=== PATIENT | male | born 1975 | race Caucasian/White ===

== ENCOUNTER 2020-03-24 10:04 | Emergency (ER) | payer OTHER ==
[2020-03-24] MEDS ORDERED: Lidocaine 1% PF 2 ML SDV INJECT ONE (10:41)
[2020-03-24] MEDS: Lidocaine 1% 10 ML MDV INJECT ONE (10:49)
--- NOTE | 2020-03-24 10:56 | EDM.PDOC ---
ED HPI GENERAL MEDICAL PROBLEM - General Chief Complaint: Laceration Stated Complaint: FORE HEAD LAC Time Seen by Provider: 03/24/20 10:24 Source of Information: Reports: Patient History Limitations: Reports: No Limitations - History of Present Illness INITIAL COMMENTS - FREE TEXT/NARRATIVE: 44-year-old male presents to the emergency department today with complaints of a laceration to his forehead. Patient reports he was working on a car this morning and the wrench fell on his head causing him to have a 1 cm laceration. 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) Middle Forehead Pain Score (Numeric/FACES): 6 - Related Data Allergies Allergy/AdvReac Type Severity Reaction Status Date / Time No Known Allergies Allergy Verified 03/24/20 10:28 Past Medical History - Past Health History Medical/Surgical History: Denies Medical/Surgical History Cardiovascular History: Reports: High Cholesterol, Hypertension Musculoskeletal History: Reports: Fracture Other Musculoskeletal History: fx 2 ribs on left side, fx L hand Psychiatric History: Reports: None Endocrine/Metabolic History: Reports: Diabetes, Type II - Infectious Disease History Infectious Disease History: Reports: Chicken Pox - Past Surgical History HEENT Surgical History: Reports: Oral Surgery Musculoskeletal Surgical History: Reports: Other (See Below) Other Musculoskeletal Surgeries/Procedures:: right arm surgery about 1 month ago Dec 15 Social & Family History - Family History Family Medical History: No Pertinent Family History Cardiac: Reports: [place], Pacemaker Other Cardiac Family History: brother- [place] when he was 28. mother [place] Neurological: Reports: Migraines, TIA Other Neurological Family History: mom-stroke 2009 Endocrine/Metabolic: Reports: Diabetes, Type I - Tobacco Use Tobacco Use Status *Q: Current Every Day Tobacco User Years of Tobacco use: 37 Packs/Tins Daily: 1.5 Used Tobacco, but Quit: No Second Hand Smoke Exposure: No - Caffeine Use Caffeine Use: Reports: Coffee - Recreational Drug Use Recreational Drug Use: No ED ROS GENERAL - Review of Systems Review Of Systems: Comprehensive ROS is negative, except as noted in HPI. ED EXAM, SKIN/RASH Exam: See Below Exam Limited By: No Limitations General Appearance: Alert, WD/WN, No Apparent Distress Eye Exam: Bilateral Eye: PERRL Ears: Hearing Grossly Normal Nose: Normal Inspection Throat/Mouth: Normal Inspection, Normal Voice, No Airway Compromise Head: Other (1cm lac to the middle of forehead) Neck: Normal Inspection, Supple, Non-Tender (Male) Exam: Deferred Rectal (Males) Exam: Deferred Back Exam: Vertebral Tenderness Extremities: Normal Inspection Neurological: Alert, Oriented, Normal Cognition Psychiatric: Normal Affect, Normal Mood Skin: Warm, Dry, Normal Color, No Rash, Wound/Incision (1 cm laceration to forehead) Location, Skin: Head Characteristics: Linear Associated features: Swelling Lymphatic: No Adenopathy ED SKIN PROCEDURES - Laceration/Wound Repair Forehead Appearance: Subcutaneous Anesthetic Type: Local Local Anesthesia - Lidocaine (Xylocaine): 1% Plain Local Anesthetic Volume: 1cc Skin Prep: Saline Closed with: Sutures Lac/Wound length In cm: 1 Suture Size: 5-0 # of Sutures: 5 Suture Type: Nylon, Interrupted Course - Vital Signs Last Recorded V/S: Last Vital Signs Temp 98.7 F 03/24/20 10:22 Pulse 70 03/24/20 10:22 Resp 16 03/24/20 10:22 BP 136/87 03/24/20 10:22 Pulse Ox 96 03/24/20 10:22 - Orders/Labs/Meds Meds: Medications Discontinued Medications Generic Name Dose Route Start Last Admin Trade Name Ariela PRN Reason Stop Dose Admin Lidocaine HCl 2 ml 03/24/20 10:41 Xylocaine-Mpf 1% INJECT 03/24/20 10:42 ONETIME ONE Departure - Departure Time of Disposition: 11:24 Disposition: Home, Self-Care 01 Condition: Good Clinical Impression: Forehead laceration Qualifiers: Encounter type: initial encounter Qualified Code(s): S01.81XA - Laceration without foreign body of other part of head, initial encounter - Discharge Information Instructions: Laceration Care, Adult, [id number] Referrals: Amee Prasad PA-C [Primary Care Provider] - Additional Instructions: You are seen in the emergency department today with complaints of a laceration in the length of 1 cm noted to the middle of your forehead. Laceration was repaired with 5 sutures. The sutures can come out in 5 days at the clinic or in the emergency department however if you return to the emergency department you may have a lengthy wait. Watch for signs and symptoms of infection which include warmth, swelling, or oozing drainage. Keep the dressing in place for 24 hours then you may clean this twice a day using mild soap such as Dial and then pat wound dry. Apply bacitracin to the site after cleaning and drying it. Sepsis Event Note (ED) - Evaluation Sepsis Screening Result: No Definite Risk - Focused Exam Vital Signs: Vital Signs Temp Pulse Resp BP Pulse Ox 03/24/20 10:22 98.7 F 70 16 136/87 96
== END 2020-03-24 11:35 | disposition home or self-care (01) ==
LOC: JD.ED 10:04
DX: S01.81XA Laceration without foreign body of other part of head, initial encounter (principal); I10 Essential (primary) hypertension; E11.9 Type 2 diabetes mellitus without complications; Z72.0 Tobacco use; W20.8XXA Other cause of strike by thrown, projected or falling object, initial encounter; Y92.009 Unspecified place in unspecified non-institutional (private) residence as the place of occurrence of the external cause
CPT/HCPCS: 12011; 99282; 99282-25; J2001

== ENCOUNTER 2020-06-03 18:00 | Emergency (ER) | payer MEDICAID ==
[2020-06-03] MEDS ORDERED: Sodium Chloride 0.9% 10 ML Syringe FLUSH PRN (18:14)
--- NOTE | 2020-06-03 18:47 | CR ---
Chest: Portable view of the chest was obtained. Comparison: Prior chest x-ray of 04/10/13. Heart size and mediastinum are normal. Lungs are clear with no acute parenchymal change. Bony structures are grossly intact. Impression: 1. Nothing acute is identified on portable chest x-ray. Diagnostic code #1
[2020-06-03] MEDS ORDERED: Aspirin 81 MG Tab.Chew PO ONE (18:59)
[2020-06-03] MEDS ORDERED: HYDROmorphone 0.5 MG/0.5 ML Syringe IVPUSH ONE (18:59)
[2020-06-03] MEDS ORDERED: Ondansetron 4 MG/2 ML SDV IVPUSH ONE (18:59)
--- NOTE | 2020-06-03 19:58 | EDM.PDOC ---
ED HPI GENERAL MEDICAL PROBLEM - General Chief Complaint: Chest Pain Stated Complaint: CHEST PAIN/DIFFICULTY BREATHING/LT ARM PAIN Time Seen by Provider: 06/03/20 18:53 Source of Information: Reports: Patient History Limitations: Reports: No Limitations - History of Present Illness INITIAL COMMENTS - FREE TEXT/NARRATIVE: The patient presents with chest pain. This started earlier today when he was on the way in to get his . The pain is in the center of his chest and it is like a tightness. This has happened before a few times. He smokes and he has high cholesterol. He has no fever, chills, cough, congestion, runny nose, shortness of breath, abdominal pain, or vomiting. He has some nausea. He is on cholesterol meds but he missed 2 days. Onset: Gradual Duration: Day(s): Location: Reports: Chest Quality: Reports: Other (tightness) Severity: Moderate Improves with: Reports: None Worsens with: Reports: None Associated Symptoms: Reports: Chest Pain. Denies: Cough, Fever/Chills, Headaches, Nausea/Vomiting, Shortness of Breath Chest Pain Score (Numeric/FACES): 8 - Related Data Allergies Allergy/AdvReac Type Severity Reaction Status Date / Time No Known Allergies Allergy Verified 06/03/20 18:21 Home Meds: Home Meds atorvaSTATin [Lipitor] 40 mg PO BEDTIME 06/03/20 [History] Past Medical History - Past Health History Medical/Surgical History: Denies Medical/Surgical History Cardiovascular History: Reports: High Cholesterol, Hypertension Musculoskeletal History: Reports: Fracture Other Musculoskeletal History: fx 2 ribs on left side, fx L hand Psychiatric History: Reports: None Endocrine/Metabolic History: Reports: Diabetes, Type II - Infectious Disease History Infectious Disease History: Reports: Chicken Pox - Past Surgical History HEENT Surgical History: Reports: Oral Surgery Musculoskeletal Surgical History: Reports: Other (See Below) Other Musculoskeletal Surgeries/Procedures:: right arm surgery about 1 month ago Dec 15 Social & Family History - Family History Family Medical History: No Pertinent Family History Cardiac: Reports: [place], Pacemaker Other Cardiac Family History: brother- [place] when he was 28. mother [place] Neurological: Reports: Migraines, TIA Other Neurological Family History: mom-stroke 2009 Endocrine/Metabolic: Reports: Diabetes, Type I - Tobacco Use Tobacco Use Status *Q: Current Every Day Tobacco User Years of Tobacco use: 37 Packs/Tins Daily: 0.5 - Caffeine Use Caffeine Use: Reports: Coffee - Recreational Drug Use Recreational Drug Use: No ED ROS GENERAL - Review of Systems Review Of Systems: See Below Constitutional: Reports: No Symptoms HEENT: Reports: No Symptoms Respiratory: Reports: No Symptoms Cardiovascular: Reports: Chest Pain Endocrine: Reports: No Symptoms GI/Abdominal: Reports: Abdominal Pain, Nausea : Reports: No Symptoms Musculoskeletal: Reports: No Symptoms ED EXAM, GENERAL - Physical Exam Exam: See Below Exam Limited By: No Limitations General Appearance: Alert, No Apparent Distress Ears: Normal External Exam Nose: Normal Inspection Head: Atraumatic, Normocephalic Neck: Normal Inspection Respiratory/Chest: No Respiratory Distress, Lungs Clear, Normal Breath Sounds Cardiovascular: Regular Rate, Rhythm, No Edema, No Murmur GI/Abdominal: Soft, Non-Tender, No Organomegaly, No Mass Back Exam: Normal Inspection Extremities: No Pedal Edema #1 Interpretation EKG Date: 06/03/20 Time: 18:05 Rhythm: NSR Rate (Beats/Min): 80 Wheeler: Normal P-Wave: Present QRS: Normal ST-T: Normal QT: Normal Course - Vital Signs Last Recorded V/S: Last Vital Signs Temp 97.1 F 06/03/20 18:15 Pulse 77 06/03/20 18:15 Resp 18 06/03/20 18:15 BP 140/103 H 06/03/20 18:15 Pulse Ox 98 06/03/20 18:15 - Orders/Labs/Meds Orders: Active Orders 24 hr Category Date Time Status EKG 12 Lead [EKG Documentation Completion] [RC] STAT Care 06/03/20 18:30 Active Peripheral IV Care [RC] . DIRECTED Care 06/03/20 18:15 Active Sodium Chloride 0.9% [Saline Flush] Med 06/03/20 18:14 Active 10 ml FLUSH ASDIRECTED PRN Peripheral IV Insertion Adult [OM.PC] Routine Oth 06/03/20 18:14 Ordered Medication Orders Sodium Chloride (Sodium Chloride 0.9% 10 Ml Syringe) 10 ml FLUSH ASDIRECTED PRN PRN Reason: Keep Vein Open Last Admin: 06/03/20 18:32 Dose: 10 ml Documented by: PATSY Labs: Laboratory Tests 06/03/20 06/03/20 06/03/20 Range/Units 18:13 18:13 18:13 WBC 10.67 H (4.23-9.07) K/mm3 RBC 5.35 (4.63-6.08) M/mm3 Hgb 16.9 (13.7-17.5) gm/dl Hct 47.1 (40.1-51.0) % MCV 88.0 (79.0-92.2) fl MCH 31.6 (25.7-32.2) pg MCHC 35.9 H (32.2-35.5) g/dl RDW Std Deviation 43.2 (35.1-43.9) fL Plt Count 275 (163-337) K/mm3 MPV 10.4 (9.4-12.3) fl Neut % (Auto) 55.3 (34.0-67.9) % Lymph % (Auto) 33.3 (21.8-53.1) % Emmet % (Auto) 7.6 (5.3-12.2) % Eos % (Auto) 3.2 (0.8-7.0) Baso % (Auto) 0.3 (0.1-1.2) % Neut # (Auto) 5.91 H (1.78-5.38) K/mm3 Lymph # (Auto) 3.55 (1.32-3.57) K/mm3 Emmet # (Auto) 0.81 (0.30-0.82) K/mm3 Eos # (Auto) 0.34 (0.04-0.54) K/mm3 Baso # (Auto) 0.03 (0.01-0.08) K/mm3 Manual Slide Review Normal smear D-Dimer, Quantitative < 0.19 L (0.19-0.50) mg/L Sodium 136 (136-145) mEq/L Potassium 4.3 (3.5-5.1) mEq/L Chloride 100 (98-107) mEq/L Carbon Dioxide 20 L (21-32) mEq/L Anion Gap 20.3 H (5-15) BUN 21 H (7-18) mg/dL Creatinine 1.0 (0.7-1.3) mg/dL Est Cr Clr Drug Dosing 87.22 mL/min Estimated GFR (MDRD) > 60 (>60) mL/min BUN/Creatinine Ratio 21.0 H (14-18) Glucose 125 H (74-106) mg/dL Calcium 8.6 (8.5-10.1) mg/dL Total Bilirubin 0.5 (0.2-1.0) mg/dL AST TNP ALT TNP Alkaline Phosphatase 96 (46-116) U/L CK-MB (CK-2) 1.6 (0-3.6) ng/ml Troponin I < 0.017 (0.00-0.056) ng/mL Total Protein TNP Albumin 4.2 (3.4-5.0) g/dl Globulin 3.7 gm/dL Albumin/Globulin Ratio 1.1 (1-2) Meds: Medications Generic Name Dose Route Start Last Admin Trade Name Freq PRN Reason Stop Dose Admin Sodium Chloride 10 ml 06/03/20 18:14 06/03/20 18:32 Sodium Chloride 0.9% 10 Ml Syringe FLUSH 10 ml ASDIRECTED PRN Administration Keep Vein Open Discontinued Medications Generic Name Dose Route Start Last Admin Trade Name Freq PRN Reason Stop Dose Admin Aspirin 324 mg 06/03/20 18:59 06/03/20 19:34 Aspirin 81 Mg Tab.Chew PO 06/03/20 19:00 324 mg ONETIME ONE Administration Hydromorphone HCl 0.5 mg 06/03/20 18:59 06/03/20 19:42 Hydromorphone 0.5 Mg/0.5 Ml Syringe IVPUSH 06/03/20 19:00 Not Given ONETIME ONE Ondansetron HCl 4 mg 06/03/20 18:59 06/03/20 19:42 Ondansetron 4 Mg/2 Ml Sdv IVPUSH 06/03/20 19:00 Not Given ONETIME ONE - Re-Assessments/Exams Free Text/Narrative Re-Assessment/Exam: 06/03/20 19:58 I ordered an IV saline lock, EKG, CXR, labs, aspirin, dilaudid and zofran. He later did not want the zofran or dilaudid. His EKG shows a NSR with no acute changes. His CXR looks good. His WBC was slightly elevated at 10.07. His anion gap was elevated at 20.3. His troponin and D-dimer were negative. This does not appear to be an [place]. Lab could not run any liver studies because his blood was to [facility]. I will have him take pepcid daily for a week and follow up with Amee Prasad next week. Departure - Departure Time of Disposition: 20:00 Disposition: Home, Self-Care 01 Condition: Good Clinical Impression: Atypical chest pain, Hypercholesterolemia Referrals: Amee Prasad PA-C [Primary Care Provider] - 1 Week Additional Instructions: Keep taking your cholesterol medications. Take pepcid 20mg daily for a week. Follow up with Amee Prasad next week. Please return if you are worse. Sepsis Event Note (ED) - Evaluation Sepsis Screening Result: No Definite Risk - Focused Exam Vital Signs: Vital Signs Temp Pulse Resp BP Pulse Ox 06/03/20 18:15 97.1 F 77 18 140/103 H 98 - My Orders Last 24 Hours: My Active Orders 06/03/20 18:14 Sodium Chloride 0.9% [Saline Flush] 10 ml FLUSH ASDIRECTED PRN Peripheral IV Insertion Adult [OM.PC] Routine 06/03/20 18:15 Peripheral IV Care [RC] . DIRECTED 06/03/20 18:30 EKG 12 Lead [EKG Documentation Completion] [RC] STAT - Assessment/Plan Last 24 Hours: My Active Orders 06/03/20 18:14 Sodium Chloride 0.9% [Saline Flush] 10 ml FLUSH ASDIRECTED PRN Peripheral IV Insertion Adult [OM.PC] Routine 06/03/20 18:15 Peripheral IV Care [RC] . DIRECTED 06/03/20 18:30 EKG 12 Lead [EKG Documentation Completion] [RC] STAT
== END 2020-06-03 20:15 | disposition home or self-care (01) ==
LOC: JD.ED 18:00
DX: R07.89 Other chest pain (principal); E78.00 Pure hypercholesterolemia, unspecified; I10 Essential (primary) hypertension; E11.9 Type 2 diabetes mellitus without complications; Z72.0 Tobacco use; Z79.899 Other long term (current) drug therapy
CPT/HCPCS: 36415; 71045; 80053; 82553; 84484; 85025; 85379; 93005; 99285; A9270; 93010; 99284

== ENCOUNTER 2020-07-28 09:19 | Emergency (ER) | payer MEDICAID ==
[2020-07-28] MEDS ORDERED: Sodium Chloride 0.9% 10 ML Syringe FLUSH PRN (09:40)
[2020-07-28] MEDS ORDERED: Alum Hydrox/Mag Hydrox/Simeth 30 ML, Lidocaine 2% 15 ML PO ONE ×2 (09:46)
--- NOTE | 2020-07-28 09:49 | EDM.PDOC ---
ED HPI GENERAL MEDICAL PROBLEM - General Chief Complaint: Chest Pain Stated Complaint: CHEST PAIN/LIGHTHEADED Time Seen by Provider: 07/28/20 09:26 Source of Information: Reports: Patient History Limitations: Reports: No Limitations, Other (ED vital signs reveal a temp of 97.1, pulse of 84, respiratory rate of 20, blood pressure 142/105, pulse ox 100% on room air) - History of Present Illness INITIAL COMMENTS - FREE TEXT/NARRATIVE: 45-year-old male presents the emergency department today with complaints of midsternal chest pain that started about 35 minutes prior to arrival. The patient states that he was at work, he works as a automatic transmission mechanic, when the chest pain started. He states it started out feeling like he got kicked in the chest with associated muscle spasm on the left side of his neck and his trapezius muscle and then muscle spasm to his paraspinal muscles on the left side of his thoracic region. He states that he had associated sweating and nausea when the chest pain started. He denies any radiation of the chest pain states it stays directly in the center of his chest and when it initially started he states it felt like heartburn. Denies any recent fever, chills, vomiting or diarrhea. Denies abdominal pain. Denies headache other than when he has the muscle spasm to the right trapezius area. He also associates hand numbness bilaterally when the chest pain started. Patient does have a history of high cholesterol for which he takes cholesterol medications. He has smoked for approximately 40 years. He does have a history of hypertension however he does not take any prescription medications and his primary care provider is Amee Prasad. Of note, the patient's last ER visit when he had chest pain, they were unable to run his LFTs as his blood was so lipemic. He was told to follow-up with his primary care provider and did not. Middle Chest Pain Score (Numeric/FACES): 10 - Related Data Allergies Allergy/AdvReac Type Severity Reaction Status Date / Time No Known Allergies Allergy Verified 07/28/20 09:29 Home Meds: Home Meds atorvaSTATin [Lipitor] 40 mg PO BEDTIME 06/03/20 [History] Past Medical History - Past Health History Medical/Surgical History: Denies Medical/Surgical History Cardiovascular History: Reports: High Cholesterol, Hypertension Musculoskeletal History: Reports: Fracture Other Musculoskeletal History: fx 2 ribs on left side, fx L hand Psychiatric History: Reports: None Endocrine/Metabolic History: Reports: Diabetes, Type II, Obesity/BMI 30+ - Infectious Disease History Infectious Disease History: Reports: Chicken Pox - Past Surgical History HEENT Surgical History: Reports: Oral Surgery Musculoskeletal Surgical History: Reports: Other (See Below) Other Musculoskeletal Surgeries/Procedures:: right arm surgery Dec 15 Social & Family History - Family History Family Medical History: No Pertinent Family History Cardiac: Reports: [place], Pacemaker Other Cardiac Family History: brother- [place] when he was 28. mother [place] Neurological: Reports: Migraines, TIA Other Neurological Family History: mom-stroke 2009 Endocrine/Metabolic: Reports: Diabetes, Type I - Tobacco Use Tobacco Use Status *Q: Current Every Day Tobacco User Years of Tobacco use: 39 Packs/Tins Daily: 1 - Caffeine Use Caffeine Use: Reports: Coffee - Recreational Drug Use Recreational Drug Use: No ED ROS GENERAL - Review of Systems Review Of Systems: Comprehensive ROS is negative, except as noted in HPI. ED EXAM, GENERAL - Physical Exam Exam: See Below Exam Limited By: No Limitations General Appearance: Alert, WD/WN, Moderate Distress Ears: Normal External Exam, Hearing Grossly Normal Nose: Normal Inspection Throat/Mouth: Normal Inspection, Normal Lips, Normal Voice, No Airway Compromise Head: Atraumatic Neck: Normal Inspection, Supple. No: Non-Tender (Tenderness noted to left trapezius area with palpation. Tenderness also noted to left lateral paraspinous area in the thoracic region) Respiratory/Chest: No Respiratory Distress, Lungs Clear, Normal Breath Sounds, No Accessory Muscle Use. No: Chest Non-Tender (Tenderness noted to the midsternal area as well as left pectoralis area) Cardiovascular: Normal Peripheral Pulses, Regular Rate, Rhythm, No Edema, No Murmur Peripheral Pulses: 2+: Radial (L), Radial (R) GI/Abdominal: Normal Bowel Sounds, Soft, Non-Tender, No Distention (Male) Exam: Deferred Rectal (Males) Exam: Deferred Back Exam: Normal Inspection Extremities: Normal Inspection, Normal Range of Motion, Non-Tender, No Pedal Edema, Normal Capillary Refill Neurological: Alert, Oriented, Normal Cognition Psychiatric: Anxious Skin Exam: Warm, Dry, Intact, Normal Color, No Rash Lymphatic: No Adenopathy #1 Interpretation EKG Date: 07/28/20 Time: 09:27 Rhythm: NSR Rate (Beats/Min): 99 [place]: Normal P-Wave: Present QRS: Normal ST-T: Normal QT: Normal EKG Interpretation Comments: Per Dr Zhong interpretation: Sinus rhythm at 99 bpm; lateral borderline ST elevation Course - Vital Signs Text/Narrative:: Upon assessment the patient is having significant amount of midsternal chest pain. Significantly more painful with palpation to the center of his chest and in the left pectoralis area. Complains of intermittent muscle spasms and cramping to his left trapezius muscle radiating up into the base of his skull. Also complaining of muscle spasms to his paraspinal muscles to the left thoracic area. Patient describes the pain in his chest as a spasmy type of pain. He states he has not eaten anything this morning and has only been smoking and had a cup of coffee. I have ordered an EKG, portable view of the chest, CBC, CMP, C-reactive protein, magnesium and troponin. I have also ordered a GI cocktail for this patient. Last Recorded V/S: Last Vital Signs Temp 97.1 F 07/28/20 09:26 Pulse 84 07/28/20 09:26 Resp 20 07/28/20 09:26 BP 142/105 H 07/28/20 09:26 Pulse Ox 100 07/28/20 09:26 - Orders/Labs/Meds Orders: Active Orders 24 hr Category Date Time Status EKG Documentation Completion [RC] STAT Care 07/28/20 09:40 Active Sodium Chloride 0.9% [Saline Flush] Med 07/28/20 09:40 Active 10 ml FLUSH ASDIRECTED PRN Saline Lock Insert [OM.PC] Stat Oth 07/28/20 09:40 Ordered Medication Orders Sodium Chloride (Sodium Chloride 0.9% 10 Ml Syringe) 10 ml FLUSH ASDIRECTED PRN PRN Reason: Keep Vein Open Last Admin: 07/28/20 09:50 Dose: 10 ml Documented by: GWENDOLYN Labs: Laboratory Tests 07/28/20 07/28/20 Range/Units 09:25 09:25 WBC 14.23 H (4.23-9.07) K/mm3 RBC 5.18 (4.63-6.08) M/mm3 Hgb 16.0 (13.7-17.5) gm/dl Hct 45.9 (40.1-51.0) % MCV 88.6 (79.0-92.2) fl MCH 30.9 (25.7-32.2) pg MCHC 34.9 (32.2-35.5) g/dl RDW Std Deviation 44.0 H (35.1-43.9) fL Plt Count 298 (163-337) K/mm3 MPV 10.7 (9.4-12.3) fl Neut % (Auto) 65.1 (34.0-67.9) % Lymph % (Auto) 27.0 (21.8-53.1) % [place] % (Auto) 6.2 (5.3-12.2) % Eos % (Auto) 1.2 (0.8-7.0) Baso % (Auto) 0.3 (0.1-1.2) % Neut # (Auto) 9.27 H (1.78-5.38) K/mm3 Lymph # (Auto) 3.84 H (1.32-3.57) K/mm3 [place] # (Auto) 0.88 H (0.30-0.82) K/mm3 Eos # (Auto) 0.17 (0.04-0.54) K/mm3 Baso # (Auto) 0.04 (0.01-0.08) K/mm3 Manual Slide Review Normal smear Sodium 140 (136-145) mEq/L Potassium 4.7 (3.5-5.1) mEq/L Chloride 104 (98-107) mEq/L Carbon Dioxide 19 L (21-32) mEq/L Anion Gap 21.7 H (5-15) BUN 22 H (7-18) mg/dL Creatinine 1.2 (0.7-1.3) mg/dL Est Cr Clr Drug Dosing 71.91 mL/min Estimated GFR (MDRD) > 60 (>60) mL/min BUN/Creatinine Ratio 18.3 H (14-18) Glucose 149 H (70-99) mg/dL Calcium 10.0 (8.5-10.1) mg/dL Magnesium 2.0 (1.8-2.4) mg/dL Total Bilirubin 0.5 (0.2-1.0) mg/dL AST 43 H (15-37) U/L ALT 59 (16-63) U/L Alkaline Phosphatase 101 (46-116) U/L Troponin I < 0.017 (0.00-0.056) ng/mL C-Reactive Protein 0.2 (<1.0) mg/dL Total Protein 8.1 (6.4-8.2) g/dl Albumin 4.4 (3.4-5.0) g/dl Globulin 3.7 gm/dL Albumin/Globulin Ratio 1.2 (1-2) Meds: Medications Generic Name Dose Route Start Last Admin Trade Name Freq PRN Reason Stop Dose Admin Sodium Chloride 10 ml 07/28/20 09:40 07/28/20 09:50 Sodium Chloride 0.9% 10 Ml Syringe FLUSH 10 ml ASDIRECTED PRN Administration Keep Vein Open Discontinued Medications Generic Name Dose Route Start Last Admin Trade Name Freq PRN Reason Stop Dose Admin Al Hydroxide/Mg Hydroxide 30 0 ml 07/28/20 09:46 07/28/20 09:50 ml/ Lidocaine HCl 15 ml PO 07/28/20 09:47 45 ml ONETIME ONE Administration Dicyclomine HCl 10 mg 07/28/20 10:27 07/28/20 10:47 Dicyclomine 10 Mg Cap PO 07/28/20 10:28 10 mg ONETIME ONE Administration - Re-Assessments/Exams Free Text/Narrative Re-Assessment/Exam: 07/28/20 10:30 Hematology reveals a WBC of 14.3, hemoglobin 16.0, hematocrit 45.9, platelet count 298, neutrophil percentage 65.1, lymphocyte percentage 27.0, elevated WBC is likely due to a stress response Chemistry reveals a sodium of 140, potassium 4.7, anion gap 21.7, BUN 22, creatinine 1.2, glucose 149, magnesium 2.0, AST 43, ALT 59, alk phos 101, troponin less than 0.017, C-reactive protein 0.2 Patient states that the GI cocktail did not seem to quell his chest pain/spasm. I have ordered for him to receive a dose of bentyl to see if we can relax that area. He states his muscle spasms in his neck and his back have resolved. 07/28/20 10:43 Portable view of the chest does not show any acute processes. Formal radiologist report is pending. 07/28/20 11:19 Patient states that he is no longer having chest pain. I suspect that the patient was having esophageal spasm and the Bentyl did seem to help relax. States that his chest now just feels sore. He will be discharged to home with recommendations that he start taking Prilosec 1 tab daily. He will need to follow-up with his primary care physician in 1 week. Departure - Departure Time of Disposition: 11:21 Disposition: Home, Self-Care 01 Condition: Good Clinical Impression: Esophageal spasm Instructions: Esophageal Spasm, Nonspecific Chest Pain, Adult, [id number] Referrals: Amee Prasad PA-C [Primary Care Provider] - Forms: ED Department Discharge Additional Instructions: You were seen in the emergency department with chest pain in the center of your chest that started this morning after he got to work. You had not eaten anything and you only had cigarettes and drink a cup of coffee. I suspect that the cause of your pain was due to esophageal spasm caused by reflux. Recommend that you stop smoking cigarettes and decrease anything that causes reflux such as caffeine, nicotine and acidic type of foods. Start taking Prilosec 20 mg daily. Also recommend that you start eating breakfast to start your day to decrease the acid in your stomach. You will need to follow-up with your primary care provider in a week to 10 days for reevaluation that this medication is working. Should your condition worsen or change, do not hesitate returning to the emergency department. Sepsis Event Note (ED) - Evaluation Sepsis Screening Result: No Definite Risk - Focused Exam Vital Signs: Vital Signs Temp Pulse Resp BP Pulse Ox 07/28/20 09:26 97.1 F 84 20 142/105 H 100 - My Orders Last 24 Hours: My Active Orders 07/28/20 09:40 EKG Documentation Completion [RC] STAT Sodium Chloride 0.9% [Saline Flush] 10 ml FLUSH ASDIRECTED PRN Saline Lock Insert [OM.PC] Stat - Assessment/Plan Last 24 Hours: My Active Orders 07/28/20 09:40 EKG Documentation Completion [RC] STAT Sodium Chloride 0.9% [Saline Flush] 10 ml FLUSH ASDIRECTED PRN Saline Lock Insert [OM.PC] Stat
[2020-07-28] MEDS ORDERED: Dicyclomine 10 MG Cap PO ONE (10:27)
--- NOTE | 2020-07-28 10:45 | CR ---
Chest: Portable view of the chest was obtained. Comparison: Prior chest x-ray of 06/03/20. Heart size and mediastinum are within normal limits. Lungs are clear with no acute parenchymal change. No acute osseous abnormality is appreciated. Impression: 1. Nothing acute is seen on portable chest x-ray. Diagnostic code #1
== END 2020-07-28 11:30 | disposition home or self-care (01) ==
LOC: JD.ED 09:19
DX: K22.4 Dyskinesia of esophagus (principal); E78.00 Pure hypercholesterolemia, unspecified; I10 Essential (primary) hypertension; E11.9 Type 2 diabetes mellitus without complications; E66.9 Obesity, unspecified; Z72.0 Tobacco use; Z68.31 Body mass index [BMI] 31.0-31.9, adult; Z79.899 Other long term (current) drug therapy
CPT/HCPCS: 36415; 71045; 80053; 83735; 84484; 85025; 86140; 93005; 99285; A9270; 93010; 99283

== ENCOUNTER 2021-02-15 03:01 | Emergency (ER) | payer SELFPAY ==
[2021-02-15] MEDS ORDERED: Morphine 4 MG/ML Syringe IVPUSH ONE (04:19)
[2021-02-15] MEDS ORDERED: Iopamidol 612 MG/ML 100 ML Bottle IVPUSH ONE (04:27)
--- NOTE | 2021-02-15 04:59 | EDM.PDOC ---
ED HPI GENERAL MEDICAL PROBLEM - General Chief Complaint: Back Pain or Injury Stated Complaint: BACK INJURY Time Seen by Provider: 02/15/21 04:00 Source of Information: Reports: Patient History Limitations: Reports: No Limitations - History of Present Illness INITIAL COMMENTS - FREE TEXT/NARRATIVE: Patient is a 45-year-old male with no significant past medical history presentin g with a chief complaint of upper and lower back pain. Patient states he was injured while at work 2 hours prior to arrival. 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 He states this machine weighs several 1000 pounds and did not strike him at high velocity but did land on top of him and caused him to fall to the ground. He denies any loss of consciousness or head injury. Reports pain primarily in the upper thoracic area and the lower back region. Denies any blunt abdominal injury. No intervention performed prior to arrival. Pain is moderate to severe in nature. Pain is worse with movement. Middle Back Pain Score (Numeric/FACES): 10 - Related Data Allergies Allergy/AdvReac Type Severity Reaction Status Date / Time No Known Allergies Allergy Verified 02/15/21 03:17 Home Meds: Home Meds atorvaSTATin [Lipitor] 40 mg PO BEDTIME 06/03/20 [History] Cyclobenzaprine [Flexeril] 20 mg PO BEDTIME #10 tab 02/15/21 [Rx] Past Medical History - Past Health History Medical/Surgical History: Denies Medical/Surgical History Cardiovascular History: Reports: High Cholesterol, Hypertension Musculoskeletal History: Reports: Fracture Other Musculoskeletal History: fx 2 ribs on left side, fx L hand Psychiatric History: Reports: None Endocrine/Metabolic History: Reports: Diabetes, Type II, Obesity/BMI 30+ - Infectious Disease History Infectious Disease History: Reports: Chicken Pox - Past Surgical History HEENT Surgical History: Reports: Oral Surgery Musculoskeletal Surgical History: Reports: Other (See Below) Other Musculoskeletal Surgeries/Procedures:: right arm surgery Dec 15 Social & Family History - Family History Family Medical History: No Pertinent Family History Cardiac: Reports: [place], Pacemaker Other Cardiac Family History: brother- [place] when he was 28. mother [place] Neurological: Reports: Migraines, TIA Other Neurological Family History: mom-stroke 2009 Endocrine/Metabolic: Reports: Diabetes, Type I - Tobacco Use Tobacco Use Status *Q: Current Every Day Tobacco User Years of Tobacco use: 38 Packs/Tins Daily: 1.5 - Caffeine Use Caffeine Use: Reports: Coffee - Recreational Drug Use Recreational Drug Use: No ED ROS GENERAL - Review of Systems Review Of Systems: See Below Free Text/Narrative/Comment: In addition to that documented in the HPI above, the additional ROS was obtained: Constitutional: Denies fevers or chills Eyes: Denies vision changes ENMT: Denies sore throat CV: Denies chest pain Resp: Denies SOB GI: Denies vomiting or diarrhea : Denies painful urination MSK: Denies recent trauma Skin: Denies new rashes Neuro: Denies new numbness or tingling or weakness Endocrine: Denies unexpected weight loss Heme: Denies bleeding disorders ED EXAM,LOWER BACK PAIN/INJURY - Physical Exam Exam: See Below Text/Narrative:: I have reviewed the triage vital signs Const: Well nourished, well developed, appears stated age Eyes: Pupils Equal and reactive to light bilaterally, no conjunctival injection HENT: No signs of trauma or swelling, Neck supple without meningismus CV: Regular Rate Rhythm, Warm, well-perfused extremities RESP: Unlabored respiratory effort GI: soft, non-tender, non-distended, no masses MSK: Patient demonstrates midline cervical spinal tenderness around C5-C6. There are no step-offs. Patient also demonstrates midline lumbar tenderness around L3-L5 region. Otherwise, no gross deformities appreciated to the extremities. Skin: Warm, dry. No rashes Neuro: GCS of 15. Alert, strategic development manager II-XII grossly intact. Sensation and motor function of extremities grossly intact. Psych: Appropriate mood and affect. Course - Vital Signs Last Recorded V/S: Last Vital Signs Temp 36.1 C 02/15/21 03:14 Pulse 86 02/15/21 03:14 Resp 16 02/15/21 03:14 BP 135/90 02/15/21 03:14 Pulse Ox 95 02/15/21 03:14 - Orders/Labs/Meds Orders: Active Orders 24 hr Category Date Time Status Cervical Spine wo Cont [CT] Stat Exams 02/15/21 04:18 Taken Chest w wo Cont [CT] Stat Exams 02/15/21 04:18 Taken Lumbar Spine Min 4V [CR] Stat Exams 02/15/21 03:16 Taken Lumbar Spine wo Cont [CT] Stat Exams 02/15/21 04:18 Taken Thoracic Spine Min 4V [CR] Stat Exams 02/15/21 03:16 Taken Thoracic Spine wo Cont [CT] Stat Exams 02/15/21 04:18 Taken Meds: Medications Discontinued Medications Generic Name Dose Route Start Last Admin Trade Name Ariela PRN Reason Stop Dose Admin Iopamidol 100 ml 02/15/21 04:27 02/15/21 04:51 Iopamidol 612 Mg/Ml 100 Ml Bottle IVPUSH 02/15/21 04:28 100 ml ONETIME ONE Administration Morphine Sulfate 4 mg 02/15/21 04:19 02/15/21 04:30 Morphine 4 Mg/Ml Syringe IVPUSH 02/15/21 04:20 4 mg ONETIME ONE Administration Departure - Departure Time of Disposition: 05:39 Disposition: Home, Self-Care 01 Clinical Impression: Back pain - Discharge Information Instructions: Acute Back Pain, Adult Referrals: Amee Prasad PA-C [Primary Care Provider] - Forms: ED Department Discharge, ED Return to Work/School Form Sepsis Event Note (ED) - Evaluation Sepsis Screening Result: No Definite Risk - Focused Exam Vital Signs: Vital Signs Temp Pulse Resp BP Pulse Ox 02/15/21 03:14 36.1 C 86 16 135/90 95 - My Orders Last 24 Hours: My Active Orders 02/15/21 03:16 Lumbar Spine Min 4V [CR] Stat Thoracic Spine Min 4V [CR] Stat 02/15/21 04:18 Cervical Spine wo Cont [CT] Stat Chest w wo Cont [CT] Stat Lumbar Spine wo Cont [CT] Stat Thoracic Spine wo Cont [CT] Stat - Assessment/Plan Last 24 Hours: My Active Orders 02/15/21 03:16 Lumbar Spine Min 4V [CR] Stat Thoracic Spine Min 4V [CR] Stat 02/15/21 04:18 Cervical Spine wo Cont [CT] Stat Chest w wo Cont [CT] Stat Lumbar Spine wo Cont [CT] Stat Thoracic Spine wo Cont [CT] Stat Assessment:: Patient is a 45-year-old male presenting to the emergency room with back injury. Patient is not an any acute distress. Vital signs within normal limits. No significant injury present on examination other than spinal tenderness. CT evaluation of this patient did not show any evidence of acute fracture. Comment of acute versus chronic 11th rib fracture seems to be more chronic as patient is not having pain in that area. At this point, patient's pain is improved and will be discharged with outpatient follow-up. Return precautions discussed as usual. Patient agrees with plan of care.
--- NOTE | 2021-02-15 09:41 | CT ---
CT cervical spine Technique: Multiple axial sections were obtained from above C1 inferiorly to the bottom of T4. Reconstructed coronal and sagittal images were obtained. Comparison: No previous cervical spine study is available. Findings: No bony central or bony neural foraminal stenosis is seen. Vertebral body heights are maintained. Mucosal thickening is seen within the ethmoid sinuses and maxillary sinuses. No fracture or subluxation is seen. Impression: 1. Sinus disease, difficult to exclude acute sinusitis. Please correlate with patient's symptoms. 2. Nothing acute is otherwise seen on CT study of the cervical spine. Diagnostic code #3 I agree with preliminary report from [facility], finalized on 02/15/21, 6:13 AM SQL DATA ARCHITECT, code 2
--- NOTE | 2021-02-15 09:46 | CT ---
CT chest Technique: Multiple axial sections were obtained through the chest. Intravenous contrast was not utilized. Reconstructed coronal and sagittal images were obtained. Comparison: Prior CT chest study of 04/11/13. Findings: Thoracic aorta shows no aneurysm. Very minimal coronary artery calcification is seen. Mediastinum shows no adenopathy. No pericardial thickening is seen. Visualized upper abdominal structures show nothing acute. Air cyst is noted within the left upper lung anteriorly which measures 1.8 cm. This measured 1.2 cm on prior study. This is most likely incidental. Lungs otherwise are clear. No acute parenchymal change is seen. Bone window settings were reviewed. Small detached tips of the spinous processes are noted within T4, T5 and T6 which appear to be old. Slight deformity is noted of the lateral left 11th rib which could represent an acute fracture if patient is symptomatic to this level. Impression: 1. Slight deformity within the lateral left 11th rib possibly due to acute fracture if patient is symptomatic to this area. 2. Small air cyst within the anterior left upper lung measuring 1.8 cm which is felt to be benign. 3. Nothing acute is otherwise seen on CT study of the chest. Diagnostic code #3 I agree with preliminary report from [facility], finalized on 02/15/21, 6:10 AM ENGINEERING MANAGER ELECTRONICS, code 1
--- NOTE | 2021-02-15 09:46 | CT ---
CT thoracic spine Technique: Multiple axial sections were obtained through the thoracic spine. Reconstructed coronal and sagittal images were obtained. Comparison: No prior thoracic spine imaging is available. Findings: Small detached tips of the spinous processes are noted within T4, T5 and T6 which are likely old. Mild scattered disc space narrowing is seen throughout the thoracic spine. Minimal scattered anterior endplate osteophytes are seen. No bony central canal stenosis is seen. Neural foramina show no focal stenosis. No abnormal subluxation is seen. Impression: 1. Mild scattered disc space narrowing with mild endplate osteophytes. 2. Detached tips of the spinous processes at T4, T5 and T6 which appear old. 3. Nothing acute is appreciated on CT study of the thoracic spine. Diagnostic code #2 I agree with preliminary report from [facility], finalized on 02/15/21, 6:17 AM REINFORCING STEEL WORKER, code 1
--- NOTE | 2021-02-15 09:47 | CT ---
CT lumbar spine Technique: Multiple axial sections were obtained through the lumbar spine. Reconstructed coronal and sagittal images were obtained. Comparison: Prior MRI lumbar spine study of 04/11/10 and prior lumbar spine plain film study performed earlier on the same day (3:33 AM). Findings: Vertebral body heights and disc spaces are maintained. No bony central or bony neural foraminal stenosis is seen. Minimal anterior osteophytes are seen at L3-4. No fracture or subluxation is seen. Impression: 1. Minimal degenerative change. 2. No acute fracture or subluxation is seen. Diagnostic code #2 I agree with preliminary report from [facility], finalized on 02/15/21, 6:17 AM CERTIFICATION TECHNICIAN, code 1
--- NOTE | 2021-02-15 09:48 | CR ---
Lumbar spine: AP, lateral and coned-down lateral view centered to the lumbosacral junction were obtained. Comparison: Prior MRI lumbar spine study of 04/11/[address] lumbar spine study performed on 4:37 AM. Findings: Vertebral body heights and disc spaces are maintained within the lumbar spine. Slight anterior osteophytes are seen off L4 and L5. Pedicles are intact. Visualized transverse and spinous processes are intact. Sacroiliac joints appear within normal limits. No fracture or subluxation is seen. Impression: 1. Slight degenerative change. 2. Nothing acute is seen on 3-view lumbar spine study. Diagnostic code #2 I agree with preliminary report from [facility], finalized on 02/15/21, 5:37 AM WET PROCESS HEAD MILLER, code 1
--- NOTE | 2021-02-15 09:53 | CR ---
Thoracic spine: AP, lateral and swimmer's views of the thoracic spine were obtained. Comparison: No prior thoracic spine imaging is available, subsequent CT thoracic spine study performed on the same day (4:37 AM) was utilized. Findings: Mild scattered disc space narrowing is seen with scattered anterior and lateral osteophytes. Minimal scoliosis is noted. Pedicles are intact. No discrete fracture or abnormal subluxation is seen. Impression: 1. Mild scattered degenerative change with slight scoliosis. 2. No acute fracture or subluxation is seen on 3-view thoracic spine study. Diagnostic code #2 I agree with preliminary report from [facility], finalized on 02/15/21, 5:38 AM SALESPERSON FURNITURE, code 1
== END 2021-02-15 06:00 | disposition home or self-care (01) ==
LOC: JD.ED 03:01
DX: M54.50 Low back pain, unspecified (principal); E78.00 Pure hypercholesterolemia, unspecified; I10 Essential (primary) hypertension; E11.9 Type 2 diabetes mellitus without complications; E66.9 Obesity, unspecified; Z79.899 Other long term (current) drug therapy; Z72.0 Tobacco use; Z68.31 Body mass index [BMI] 31.0-31.9, adult
CPT/HCPCS: 71270; 72074; 72110; 72125; 72128; 72131; 96374; 99284; J2270; Q9967

== ENCOUNTER 2021-12-23 12:36 | Emergency (ER) | payer BC, MEDICAID ==
[2021-12-23] MEDS ORDERED: Sodium Chloride 0.9% 10 ML Syringe FLUSH PRN (13:21)
[2021-12-23] MEDS ORDERED: Aspirin 81 MG Tab.Chew PO ONE (13:21)
== END 2021-12-23 15:49 | disposition home or self-care (01) ==
LOC: JD.ED 12:36
DX: M54.6 Pain in thoracic spine (principal); M75.102 Unspecified rotator cuff tear or rupture of left shoulder, not specified as traumatic; R07.89 Other chest pain; E78.00 Pure hypercholesterolemia, unspecified; I10 Essential (primary) hypertension; E11.9 Type 2 diabetes mellitus without complications; E66.9 Obesity, unspecified; Z68.32 Body mass index [BMI] 32.0-32.9, adult; Z72.0 Tobacco use; Z79.899 Other long term (current) drug therapy
CPT/HCPCS: 36415; 71045; 73030; 80053; 83735; 84484; 85025; 85379; 85610; 93005; 99285; A9270; J3490

== ENCOUNTER 2022-07-13 20:49 | Emergency (ER) | payer BC ==
[2022-07-13] MEDS ORDERED: Ketorolac 60 MG/2 ML SDV IM ONE (22:22)
== END 2022-07-13 23:15 | disposition home or self-care (01) ==
LOC: JD.ED 20:49
DX: S80.11XA Contusion of right lower leg, initial encounter (principal); E78.00 Pure hypercholesterolemia, unspecified; I10 Essential (primary) hypertension; F17.210 Nicotine dependence, cigarettes, uncomplicated; Z79.899 Other long term (current) drug therapy; W22.8XXA Striking against or struck by other objects, initial encounter; Y92.89 Other specified places as the place of occurrence of the external cause; Y99.0 Civilian activity done for income or pay
CPT/HCPCS: 73590; 96372; 99283; J1885

== ENCOUNTER 2022-07-19 20:19 | Emergency (ER) | payer BC | END 2022-07-19 20:30 | disposition left against medical advice (07) | LOC: JD.ED 20:19 | DX: Z53.21 Procedure and treatment not carried out due to patient leaving prior to being seen by health care provider (principal) ==

== ENCOUNTER 2022-07-24 23:30 | Emergency (ER) | payer BC ==
[2022-07-25 00:46] LABS: BASOPHILS ABSOLUTE AUTO 0.04 K/mm3 (0.01-0.08); BASOPHILS PERCENT AUTO 0.3 % (0.1-1.2); EOSINOPHILS ABSOLUTE AUTO 0.29 K/mm3 (0.04-0.54); EOSINOPHILS PERCENT AUTO 2.4 (0.8-7.0); HEMATOCRIT 43.4 % (40.1-51.0); IMMATURE GRAN ABSOLUTE AUTO 0.03 K/mm3 (0.00-0.10); IMMATURE GRAN PERCENT AUTO 0.2 % (<=1.0); LYMPHOCYTES ABSOLUTE AUTO 4.15 K/mm3 (1.32-3.57); LYMPHOCYTES PERCENT AUTO 34.4 % (21.8-53.1); MEAN CORPUSCULAR HEMOGLOBIN 30.5 pg (25.7-32.2); MEAN CORPUSCULAR HGB CONC 34.6 g/dl (32.2-35.5); MEAN CORPUSCULAR VOLUME 88.2 fl (79.0-92.2); MEAN PLATELET VOLUME 10.7 fl (9.4-12.3); MONOCYTES ABSOLUTE AUTO 0.88 K/mm3 (0.30-0.82); MONOCYTES PERCENT AUTO 7.3 % (5.3-12.2); NEUTROPHILS ABSOLUTE AUTO 6.67 K/mm3 (1.78-5.38); NEUTROPHILS PERCENT AUTO 55.4 % (34.0-67.9); PLATELET COUNT,PLT 217 K/mm3 (163-337); RED BLOOD CELL COUNT 4.92 M/mm3 (4.63-6.08); WHITE BLOOD CELL COUNT,WBC 12.06 K/mm3 (4.23-9.07)
[2022-07-25 00:49] LABS: BARBITURATE SCREEN,URINE NEGATIVE (CUTOFF=200); BENZODIAZEPINES SCREEN,URINE NEGATIVE (CUTOFF=150); BUPRENORPHINE SCREEN,URINE NEGATIVE (CUTOFF=10); METHADONE SCREEN, URINE NEGATIVE (CUT0FF=200); METHAMPHETAMINES SCREEN, URINE NEGATIVE (CUTOFF=500); OXYCODONE SCREEN,URINE NEGATIVE (CUT0FF=100); PROPOXYPHENE SCREEN,URINE NEGATIVE (CUTOFF=300); THC SCREEN,URINE 20 NG/ML NEGATIVE (CUTOFF=50)
[2022-07-25 00:53] LABS: AMPHETAMINES SCREEN, URINE NEGATIVE (CUTOFF=500)
[2022-07-25 01:01] LABS: A/G RATIO 1.2 (1-2); ANION GAP 16.7 (5-15); BILIRUBIN TOTAL 0.2 mg/dL (0.2-1.0); BUN/CREATININE RATIO 18.2 (14-18); CREATININE 1.1 mg/dL (0.7-1.3); EST CRCL DRUG DOSING (CG) 76.78 mL/min; ETHANOL BLOOD MEDICAL 0.15 gm% (0.00); POTASSIUM,K 3.7 mEq/L (3.5-5.1); PROTEIN TOTAL,TP 7.4 g/dl (6.4-8.2); TSH 3.573 uIU/mL (0.358-3.74)
== END 2022-07-25 04:09 | disposition home or self-care (01) ==
LOC: JD.ED 23:30
DX: F32.A Depression, unspecified (principal); E78.00 Pure hypercholesterolemia, unspecified; I10 Essential (primary) hypertension; F17.210 Nicotine dependence, cigarettes, uncomplicated; Z79.899 Other long term (current) drug therapy
CPT/HCPCS: 36415; 80053; 80306; 80307; 84443; 85025; 99284